=== PATIENT | female | born 1970 | race Caucasian/White ===

== ENCOUNTER 2020-07-06 11:03 | Outpatient (NON) | payer OTHER, SELFPAY ==
[2020-07-06 23:36] LABS: SARS-CoV-2 RNA PCR Negative
== END 2020-07-06 11:04 ==
PROVIDERS: PCP Physician Assistant; Visit Provider Student in an Organized Health Care Education/Training Program
DX: Z20.828 Contact with and (suspected) exposure to other viral communicable diseases (principal); R06.02 Shortness of breath; R05 Cough
CPT/HCPCS: 87635; C9803; U0003